=== PATIENT | female | born 1980 | race Caucasian/White ===

== ENCOUNTER 2017-05-17 15:41 | Emergency (ER) | payer MEDICAID ==
[2017-05-17] MEDS ORDERED: Diazepam 5 MG TAB ONE (17:16)
[2017-05-17] MEDS ORDERED: HYDROcodone/Acetaminophen 10/325 mg Tablet ONE (17:16)
[2017-05-17] MEDS ORDERED: Naproxen 500 MG TAB ONE (17:17)
== END 2017-05-17 17:05 | disposition left against medical advice (07) ==
LOC: MADERS 15:41
DX: R22.0 Localized swelling, mass and lump, head (principal); F20.9 Schizophrenia, unspecified; F17.200 Nicotine dependence, unspecified, uncomplicated
CPT/HCPCS: 99283